=== PATIENT | female | born 1975 | race Caucasian/White ===

== ENCOUNTER 2017-07-28 07:38 | Emergency (ER) | payer BC, OTHER ==
--- NOTE | 2017-07-28 08:10 | EDM.PDOC ---
ED HPI GENERAL MEDICAL PROBLEM - General Chief Complaint: Respiratory Problem Stated Complaint: coughing Time Seen by Provider: 07/28/17 07:38 Source of Information: Reports: Patient History Limitations: Reports: No Limitations - History of Present Illness INITIAL COMMENTS - FREE TEXT/NARRATIVE: 41 y.o.w.f -smoker-came to the ed due tpo a 3 day productive cough. No F/C. She has sinus pressure as well. No other acute medical issues. Onset Date: 07/26/17 Onset Time: 07:00 Duration: Day(s):, Intermittent Location: Reports: Chest Quality: Reports: Other (acute prod cough) Improves with: Reports: Medication, Rest Worsens with: Reports: Movement Context: Reports: Other (smoker, cough) Associated Symptoms: Reports: Other (sinus pressure) - Related Data Allergies Allergy/AdvReac Type Severity Reaction Status Date / Time No Known Allergies Allergy Verified 07/28/17 07:59 Home Meds: Home Meds Ibuprofen 800 mg PO Q6HR PRN 06/27/14 [History] Codeine/Promethazine [Phenergan with Codeine] 5 ml PO ASDIRECTED PRN #1 bottle 07/28/17 [Rx] Sulfamethoxazole/Trimethoprim [Bactrim Ds Tablet] 1 each PO BID #20 tablet 07/28 [Rx] metFORMIN [Glucophage] 1,000 mg PO BIDMEALS 07/28/17 [History] Past Medical History - Past Health History Medical/Surgical History: Denies Medical/Surgical History Social & Family History - Tobacco Use Smoking Status *Q: Current Every Day Smoker Years of Tobacco use: 15 Used Tobacco, but Quit: No Second Hand Smoke Exposure: No - Alcohol Use Days Per Week of Alcohol Use: 0 - Recreational Drug Use Recreational Drug Use: No ED ROS GENERAL - Review of Systems Review Of Systems: See Below Constitutional: Reports: No Symptoms HEENT: Reports: Sinus Problem Respiratory: Reports: Cough Cardiovascular: Reports: No Symptoms Endocrine: Reports: No Symptoms GI/Abdominal: Reports: No Symptoms : Reports: No Symptoms Musculoskeletal: Reports: No Symptoms Skin: Reports: No Symptoms Neurological: Reports: No Symptoms Psychiatric: Reports: No Symptoms Hematologic/Lymphatic: Reports: No Symptoms Immunologic: Reports: No Symptoms ED EXAM, GENERAL - Physical Exam Exam: See Below Exam Limited By: No Limitations General Appearance: Alert, WD/WN, No Apparent Distress Eye Exam: Bilateral Eye: Normal Inspection Ears: Normal External Exam Ear Exam: Bilateral Ear: Auricle Normal Nose: Normal Inspection Throat/Mouth: Normal Inspection Head: Atraumatic, Normocephalic Neck: Normal Inspection, Supple, Non-Tender Respiratory/Chest: No Respiratory Distress, Rhonchi Cardiovascular: Normal Peripheral Pulses, Regular Rate, Rhythm, No Edema, No Gallop, No JVD, No Murmur Peripheral Pulses: 1+: Radial (L), Radial (R) GI/Abdominal: Normal Bowel Sounds, Soft, Non-Tender (Female) Exam: Deferred Rectal (Female) Exam: Deferred Back Exam: Normal Inspection, Full Range of Motion Extremities: Normal Inspection, Normal Range of Motion Neurological: Alert, Oriented, CN II-XII Intact, Normal Cognition, Normal Gait Psychiatric: Normal Affect, Normal Mood Skin Exam: Warm, Dry, Intact, Normal Color, No Rash Lymphatic: No Adenopathy Course - Vital Signs Text/Narrative:: 41 y.o.w.f -smoker-came to the ed due tpo a 3 day productive cough. No F/C. She has sinus pressure as well. No other acute medical issues. PE: Rhonchi, sinus tenderness Impression: Acute bronchitis, sinus tenderness Tx: prescription for Pherergen with codeine and Bactrim DS Plan: D/C with instructions Last Recorded V/S: Last Vital Signs Temp 36.3 C 07/28/17 08:00 Pulse 96 07/28/17 08:00 Resp 18 07/28/17 08:00 BP 150/78 H 07/28/17 08:00 Pulse Ox 98 07/28/17 08:00 Departure - Departure Time of Disposition: 08:21 Disposition: Home, Self-Care 01 Condition: Good Clinical Impression: Acute bronchitis Qualifiers: Bronchitis organism: other organism Qualified Code(s): J20.8 - Acute bronchitis due to other specified organisms Sinusitis Qualifiers: Sinusitis location: pansinusitis Chronicity: acute Recurrence: non-recurrent Qualified Code(s): J01.40 - Acute pansinusitis, unspecified - Discharge Information Prescriptions: Codeine/Promethazine [Phenergan with Codeine] 5 ml PO ASDIRECTED PRN #1 bottle PRN Reason: as needed for severe cough Sulfamethoxazole/Trimethoprim [Bactrim Ds Tablet] 1 each PO BID #20 tablet Referrals: Jose Munoz MD [Primary Care Provider] - Forms: ED Department Discharge Additional Instructions: Please stop tobacco use, please the abx and cough meds as recommended, please follow up, please come back if your symptoms get worse acutely
[2017-07-28 10:27] VITALS: BP 145/86
== END 2017-07-28 08:45 | disposition home or self-care (01) ==
LOC: FB.ED 07:38
DX: J01.40 Acute pansinusitis, unspecified (principal); J20.8 Acute bronchitis due to other specified organisms; F17.210 Nicotine dependence, cigarettes, uncomplicated
CPT/HCPCS: 99283

== ENCOUNTER 2019-02-03 22:16 | Emergency (ER) | payer BC, OTHER ==
[2019-02-03] MEDS ORDERED: Penicillin V Potassium 500 MG Tab PO ONE (23:35)
--- NOTE | 2019-02-03 23:40 | EDM.PDOC ---
ED HPI GENERAL MEDICAL PROBLEM - General Stated Complaint: SORE THROAT Time Seen by Provider: 02/03/19 23:25 Source of Information: Reports: Patient History Limitations: Reports: No Limitations - History of Present Illness INITIAL COMMENTS - FREE TEXT/NARRATIVE: 43-year-old female with nasal congestion for about the past 2 days and malaise with a scratchy throat and chills this morning. She awoke this afternoon with a worsened sore throat and subjective fever with chills. She was not having any trouble breathing. She rated the pain in her throat as a 7/10, it was a sharp and sore pain and it was hard to swallow. The pain was worse with swallowing and with palpation. She has been able to take liquids and with time the symptoms have improved somewhat but she still feels bad all over with the sore throat as well. No nausea or vomiting. There are no other associated signs or symptoms. There are no other modifying factors. 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) - Related Data Allergies Allergy/AdvReac Type Severity Reaction Status Date / Time No Known Allergies Allergy Verified 02/03/19 22:29 Home Meds: Home Meds Ibuprofen 800 mg PO Q6HR PRN 06/27/14 [History] Codeine/Promethazine [Phenergan with Codeine] 5 ml PO ASDIRECTED PRN #1 bottle 07/28/17 [Rx] Sulfamethoxazole/Trimethoprim [Bactrim Ds Tablet] 1 each PO BID #20 tablet 07/28 [Rx] metFORMIN [Glucophage] 1,000 mg PO BIDMEALS 07/28/17 [History] Penicillin V Potassium 1,000 mg PO BID 10 Days #40 tab 02/03/19 [Rx] Past Medical History Endocrine/Metabolic History: Reports: Diabetes, Type II (On metformin) - Past Surgical History Female Surgical History: Reports: Section (2) Social & Family History - Tobacco Use Smoking Status *Q: Current Every Day Smoker - Caffeine Use Caffeine Use: Reports: Coffee, Soda - Alcohol Use Alcohol Use History: No - Living Situation & Occupation Occupation: Employed (Works at [employer]) Social History Comment: She is here with her daughter. ED ROS ENT - Review of Systems Review Of Systems: See Below Constitutional: Reports: Fever, Chills HEENT: Reports: Throat Pain, Other (Nasal congestion) Respiratory: Reports: No Symptoms Cardiovascular: Reports: No Symptoms GI/Abdominal: Reports: No Symptoms : Reports: No Symptoms Musculoskeletal: Reports: No Symptoms Skin: Reports: No Symptoms Neurological: Reports: Headache Hematologic/Lymphatic: Reports: No Symptoms Immunologic: Reports: No Symptoms ED EXAM, ENT - Physical Exam Exam: See Below Exam Limited By: No Limitations General Appearance: Alert, WD/WN, Mild Distress Eye Exam: Bilateral Eye: EOMI, Normal Inspection, PERRL Ears: Normal External Exam, Normal Canal, Hearing Grossly Normal, Normal TMs Nose: Clear Rhinorrhea, Nasal Discharge Mouth/Throat: Normal Gums, Throat Swelling, Tonsillar Erythema, Tonsillar Exudates, Tonsillar Swelling, Other (No evidence of peritonsillar abscess) Head: Atraumatic, Normocephalic Neck: Supple, Full Range of Motion, Lymphadenopathy (R), Lymphadenopathy (L) Respiratory/Chest: No Respiratory Distress, Lungs Clear, Normal Breath Sounds, No Accessory Muscle Use, Chest Non-Tender Cardiovascular: Normal Peripheral Pulses, Regular Rate, Rhythm, No Edema, No JVD GI/Abdominal: Normal Bowel Sounds, Soft, Non-Tender, No Organomegaly, No Mass Back: Normal Inspection Extremities: Normal Inspection, Normal Range of Motion, Non-Tender, No Pedal Edema, Normal Capillary Refill Neurological: Alert, Oriented, CN II-XII Intact, Normal Cognition, No Motor/ Sensory Deficits Psychiatric: Normal Affect Skin: Warm, Dry, Intact, Normal Color, No Rash Lymphatic: No Adenopathy Course - Orders/Labs/Meds Meds: Medications Discontinued Medications Generic Name Dose Route Start Last Admin Trade Name Treyq PRN Reason Stop Dose Admin Hydrocodone Bitart/Acetaminophen Confirm 02/04/19 00:25 [place] 325-10 Mg Administered 02/04/19 00:26 Dose 1 tab .ROUTE .STK-MED ONE Dexamethasone 8 mg 02/03/19 23:33 02/04/19 00:21 Dexamethasone PO 02/03/19 23:34 8 mg ONETIME ONE Administration Penicillin V Potassium 1,000 mg 02/03/19 23:35 Veetids PO 02/03/19 23:36 ONETIME ONE Penicillin V Potassium Confirm 02/04/19 00:11 Veetids Administered 02/04/19 00:12 Dose 1,000 mg .ROUTE .STK-MED ONE Penicillin V Potassium 1,000 mg 02/04/19 00:15 02/04/19 00:20 Veetids PO 02/04/19 00:16 1,000 mg ONETIME ONE Administration Penicillin V Potassium Confirm 02/04/19 00:27 Veetids Administered 02/04/19 00:28 Dose 250 mg .ROUTE .STK-MED ONE Departure - Departure Time of Disposition: 23:45 Disposition: Home, Self-Care 01 Condition: Good Clinical Impression: Pharyngitis Qualifiers: Pharyngitis/tonsillitis etiology: unspecified etiology Qualified Code(s): J02.9 - Acute pharyngitis, unspecified - Discharge Information Prescriptions: Penicillin V Potassium 1,000 mg PO BID 10 Days #40 tab Referrals: Jose Munoz MD [Primary Care Provider] - Additional Instructions: You have a pharyngitis. This could be strep throat or some other bacterial infection. We discussed evaluation and treatment options and you would prefer to this be placed on antibiotics at this time. You were given Decadron, an anti- inflammatory medication, in the emergency department to help decrease your pain and swelling. You should rest. You should drink plenty of fluids. Take Tylenol and ibuprofen as needed for fever or pain. Medication as prescribed (Pen-VK 500 mg). Take probiotics or eat yogurt daily while you are on the antibiotics. Back to the emergency department for inability to swallow liquids, trouble breathing , unrelenting vomiting or any other concerning sign or symptom.
[2019-02-04] MEDS ORDERED: Penicillin V Potassium 250 MG Tab ONE ×2 (00:11→00:27)
[2019-02-04] MEDS: Dexamethasone 4 MG/ML SDV PO ONE ×3 (00:12→01:01)
[2019-02-04] MEDS ORDERED: Penicillin V Potassium 250 MG Tab PO ONE (00:15)
[2019-02-04] MEDS ORDERED: Acetaminophen/HYDROcodone 325-10 MG Tab ONE (00:25)
[2019-02-04 01:05] VITALS: BP 133/86
== END 2019-02-04 00:40 | disposition home or self-care (01) ==
LOC: FB.ED 22:16
DX: J02.9 Acute pharyngitis, unspecified (principal); F17.210 Nicotine dependence, cigarettes, uncomplicated; Z79.899 Other long term (current) drug therapy; Z79.84 Long term (current) use of oral hypoglycemic drugs
CPT/HCPCS: 99282; A9270; J1100

== ENCOUNTER 2019-02-08 15:33 | Emergency (ER) | payer BC ==
[2019-02-08] MEDS ORDERED: Ondansetron 4 MG Tab.DIS PO ONE (15:34)
[2019-02-08] MEDS ORDERED: Sodium Chloride 0.9% 10 ML Syringe FLUSH PRN (16:09)
[2019-02-08] MEDS ORDERED: Sodium Chloride 0.9% 1,000 ML IV ONE (16:10)
[2019-02-08] MEDS ORDERED: Ondansetron 4 MG/2 ML SDV IVPUSH ONE (16:10)
--- NOTE | 2019-02-08 16:16 | EDM.PDOC ---
ED HPI GENERAL MEDICAL PROBLEM - General Chief Complaint: Gastrointestinal Problem Stated Complaint: PATIENT VOMITING, POSSIBLE DEHYDRATION Time Seen by Provider: 02/08/19 15:50 Source of Information: Reports: Patient History Limitations: Reports: No Limitations - History of Present Illness INITIAL COMMENTS - FREE TEXT/NARRATIVE: 43-year-old female with onset of vomiting at 3 AM followed by diarrhea. She reports she has had 15 episodes of vomiting since 3 AM. It has been nonbilious. It seems to be whenever she tries to drink. She is also had 15+ episodes of diarrhea since 3 AM with no blood in her stool. Her stools and then loose and watery. She has had no fevers or chills. She has developed some soreness in her upper abdomen that she rates as about an 8/10 now. It is worse with vomiting and with palpation. It does not radiate. She was seen on 02/03/2019 by myself for pharyngitis and was treated with Pen-Vee K at that time. She reports that her sore throat had basically improved/resolved prior to this vomiting and diarrhea beginning. She feels somewhat weak with standing and moving. She has had urine output but it has been decreased. There are no other associated signs or symptoms. There are no other modifying factors. Onset: Today (3 AM) Duration: Constant Location: Reports: Abdomen (Mild soreness in her upper abdomen) Quality: Reports: Other (Soreness) Severity: Moderate Improves with: Reports: Rest Worsens with: Reports: Other (Palpation) Context: Reports: Other (As above) Associated Symptoms: Reports: Nausea/Vomiting, Weakness Treatments [employer]: Reports: Other (see below) (Nothing) Abdominal Pain Score (Numeric/FACES): 8 - Related Data Allergies Allergy/AdvReac Type Severity Reaction Status Date / Time No Known Allergies Allergy Verified 02/08/19 15:43 Home Meds: Home Meds Ibuprofen 800 mg PO Q6HR PRN 06/27/14 [History] metFORMIN [Glucophage] 1,000 mg PO BIDMEALS 07/28/17 [History] Penicillin V Potassium 1,000 mg PO BID 10 Days #40 tab 02/03/19 [Rx] Past Medical History Endocrine/Metabolic History: Reports: Diabetes, Type II, Obesity/BMI 30+ - Past Surgical History Female Surgical History: Reports: Section Social & Family History - Tobacco Use Smoking Status *Q: Current Every Day Smoker Years of Tobacco use: 19 Packs/Tins Daily: 0.5 - Caffeine Use Caffeine Use: Reports: Coffee, Energy Drinks, Soda - Alcohol Use Alcohol Use History: No - Recreational Drug Use Recreational Drug Use: No - Living Situation & Occupation Living situation: Reports: Occupation: Employed (Works at [employer]) Social History Comment: She is here with her daughter and her . ED ROS GENERAL - Review of Systems Review Of Systems: See Below Constitutional: Reports: Weakness HEENT: Reports: Other (Dry mouth) Respiratory: Reports: No Symptoms Cardiovascular: Reports: No Symptoms GI/Abdominal: Reports: Abdominal Pain, Diarrhea, Nausea, Vomiting : Reports: No Symptoms (But has had decreased urine output today) Musculoskeletal: Reports: No Symptoms Skin: Reports: No Symptoms Neurological: Reports: No Symptoms Hematologic/Lymphatic: Reports: No Symptoms Immunologic: Reports: No Symptoms ED EXAM, GI/ABD - Physical Exam Exam: See Below Exam Limited By: No Limitations General Appearance: Alert, WD/WN, Mild Distress Eyes: Bilateral: Normal Appearance, EOMI Ears: Normal External Exam, Hearing Grossly Normal Nose: Normal Inspection, Normal Mucosa, No Blood Throat/Mouth: Normal Voice, No Airway Compromise, Other (Somewhat dry and tacky because membranes) Head: Atraumatic, Normocephalic Neck: Normal Inspection, Supple, Non-Tender, Full Range of Motion Respiratory/Chest: No Respiratory Distress, Lungs Clear, Normal Breath Sounds, No Accessory Muscle Use, Chest Non-Tender Cardiovascular: Normal Peripheral Pulses, No Edema, Tachycardia (Mildly tachycardic) GI/Abdominal Exam: Normal Bowel Sounds, Soft, No Mass, Tender (Mild upper abdominal tenderness.) Back Exam: Normal Inspection Extremities: Normal Inspection, Normal Range of Motion, Non-Tender, No Pedal Edema, Normal Capillary Refill Neurological: Alert, Oriented, CN II-XII Intact, Normal Cognition, No Motor/ Sensory Deficits Skin Exam: Warm, Dry, Intact, Normal Color, No Rash, Other (Decreased skin turgor) Course - Vital Signs Last Recorded V/S: Last Vital Signs Temp 36.8 C 02/08/19 15:35 Pulse 113 H 02/08/19 16:46 Resp 20 02/08/19 15:35 BP 158/72 H 02/08/19 16:46 Pulse Ox 98 02/08/19 15:35 - Orders/Labs/Meds Orders: Active Orders 24 hr Category Date Time Status Loperamide [Imodium] Med 02/08/19 17:31 Once 4 mg PO ONETIME ONE Sodium Chloride 0.9% [Saline Flush] Med 02/08/19 16:09 Active 10 ml FLUSH ASDIRECTED PRN Peripheral IV Insertion Adult [OM.PC] Routine Oth 02/08/19 16:09 Ordered Medication Orders Loperamide HCl (Imodium) 4 mg PO ONETIME ONE Stop: 02/08/19 17:32 Sodium Chloride (Saline Flush) 10 ml FLUSH ASDIRECTED PRN PRN Reason: Keep Vein Open Last Admin: 02/08/19 16:15 Dose: 10 ml Labs: Laboratory Tests 02/08/19 02/08/19 Range/Units 16:20 16:20 WBC 16.5 H (4.5-12.0) X10-3/uL RBC 5.33 H (3.23-5.20) x10(6)uL Hgb 16.5 H (11.5-15.5) g/dL Hct 48.3 (30.0-51.3) % MCV 90.6 (80-96) fL MCH 31.0 (27.7-33.6) pg MCHC 34.2 (32.2-35.4) g/dL RDW 12.7 (11.5-15.5) % Plt Count 241 (125-369) X10(3)uL MPV 9.4 (7.4-10.4) fL Neut % (Auto) 88.5 H (46-82) % Lymph % (Auto) 3.5 L (13-37) % [place] % (Auto) 4.6 (4-12) % Eos % (Auto) 0 L (1.0-5.0) % Baso % (Auto) 3 H (0-2) % Neut # (Auto) 14.6 H (1.6-8.3) # Lymph # (Auto) 0.6 (0.6-5.0) # [place] # (Auto) 0.8 (0.0-1.3) # Eos # (Auto) 0.0 (0.0-0.8) # Baso # (Auto) 0.5 H (0.0-0.2) # Sodium 135 (135-145) mmol/L Potassium 4.2 (3.5-5.3) mmol/L Chloride 98 L (100-110) mmol/L Carbon Dioxide 25 (21-32) mmol/L BUN 11 (7-18) mg/dL Creatinine 0.7 (0.55-1.02) mg/dL Est Cr Clr Drug Dosing 76.58 mL/min Estimated GFR (MDRD) > 60 (>60) BUN/Creatinine Ratio 15.7 (9-20) Glucose 230 H (80-116) mg/dL Calcium 8.6 (8.6-10.2) mg/dL Total Bilirubin 0.7 (0.1-1.3) mg/dL AST 24 (5-25) IU/L ALT 69 H (12-36) U/L Alkaline Phosphatase 80 (56-112) IU/L Total Protein 7.4 (6.0-8.0) g/dL Albumin 3.6 (3.5-5.2) g/dL Globulin 3.8 g/dL Albumin/Globulin Ratio 1.0 Amylase 21 L (25-115) U/L Meds: Medications Generic Name Dose Route Start Last Admin Trade Name Freq PRN Reason Stop Dose Admin Loperamide HCl 4 mg 02/08/19 17:31 Imodium PO 02/08/19 17:32 ONETIME ONE Sodium Chloride 10 ml 02/08/19 16:09 02/08/19 16:15 Saline Flush FLUSH 10 ml ASDIRECTED PRN Administration Keep Vein Open Discontinued Medications Generic Name Dose Route Start Last Admin Trade Name Freq PRN Reason Stop Dose Admin Sodium Chloride 1,000 mls @ 999 mls/hr 02/08/19 16:10 02/08/19 16:20 Normal Saline IV 02/08/19 17:10 999 mls/hr .BOLUS ONE Administration Ondansetron HCl 4 mg 02/08/19 16:10 02/08/19 16:21 Zofran IVPUSH 02/08/19 16:11 4 mg ONETIME ONE Administration - Re-Assessments/Exams Free Text/Narrative Re-Assessment/Exam: 02/08/19 16:50: Patient feels improved. Her nausea is gone. Her abdomen is soft and completely nontender at this point. Her vital signs have been stable. The plan will be to finish the IV fluid bolus and then give her a fluid challenge. If she tolerates this, she will be discharged. 02/08/19 17:33: Patient has tolerated fluids well with no further nausea and no vomiting. Her abdomen remained soft and nontender. She has not had any diarrhea stools since she has been here but I will give her of Imodium now and have her get Imodium ([id number]) that she can take or any diarrhea. He will also be given a home pack of Zofran. Departure - Departure Time of Disposition: 17:35 Disposition: Home, Self-Care 01 Condition: Good Clinical Impression: Vomiting and diarrhea, Dehydration - Discharge Information Instructions: Nausea and Vomiting, Adult, [id number], Diarrhea, Adult, Easy- to-Read, Rehydration, Adult, Diarrhea, Adult Referrals: Jose Munoz MD [Primary Care Provider] - Forms: ED Department Discharge Additional Instructions: Your blood tests did not point towards any significant problem. You responded well to the IV fluids and nausea medications with no further vomiting and no further abdominal discomfort. Rest. You may take Tylenol and ibuprofen as needed for pain. Obtain Imodium ([id number]) and you may take 1 tablet after each loose stool up to 6 doses in a 24-hour period. Medication as given for urine nausea (Zofran 4 mg ODT). You should stop the penicillin. In 12-18 hours, you should begin to take probiotics or yogurt daily. Back to the emergency department for unrelenting vomiting, worsening abdominal pain, high fever or any other concerning sign or symptom. - My Orders Last 24 Hours: My Active Orders 02/08/19 16:09 Sodium Chloride 0.9% [Saline Flush] 10 ml FLUSH ASDIRECTED PRN Peripheral IV Insertion Adult [OM.PC] Routine 02/08/19 17:31 Loperamide [Imodium] 4 mg PO ONETIME ONE - Assessment/Plan Last 24 Hours: My Active Orders 02/08/19 16:09 Sodium Chloride 0.9% [Saline Flush] 10 ml FLUSH ASDIRECTED PRN Peripheral IV Insertion Adult [OM.PC] Routine 02/08/19 17:31 Loperamide [Imodium] 4 mg PO ONETIME ONE
[2019-02-08] MEDS ORDERED: Loperamide 2 MG Cap PO ONE (17:31)
[2019-02-08 17:37] VITALS: BP 148/66
== END 2019-02-08 17:45 | disposition home or self-care (01) ==
LOC: FB.ED 15:33
DX: E86.0 Dehydration (principal); R19.7 Diarrhea, unspecified; R11.2 Nausea with vomiting, unspecified; F17.210 Nicotine dependence, cigarettes, uncomplicated; Z79.899 Other long term (current) drug therapy
CPT/HCPCS: 36415; 80053; 82150; 85025; 96361; 96374; 99284; A9270; J2405; J7030

== ENCOUNTER 2019-03-21 15:52 | Emergency (ER) | payer BC ==
[2019-03-21] MEDS ORDERED: Famotidine 20 MG Tab PO ONE (16:54)
[2019-03-21] MEDS ORDERED: diphenhydrAMINE 50 MG Cap PO ONE (16:54)
--- NOTE | 2019-03-21 17:02 | EDM.PDOC ---
ED HPI GENERAL MEDICAL PROBLEM - General Chief Complaint: Allergic Reaction Stated Complaint: ALLERGIC REACTION Time Seen by Provider: 03/21/19 16:35 Source of Information: Reports: Patient History Limitations: Reports: No Limitations - History of Present Illness INITIAL COMMENTS - FREE TEXT/NARRATIVE: 43-year-old female who reports that she awoke at 11 AM today with swelling over the right side of her face, forehead and scalp with tenderness with palpation. There is no redness associated with this. It does feel warm to her touch but she has had no fever. No nausea or vomiting. She reports the pain is a 6/10. It is a sharp and sore pain. It is worse with palpation. She reports that she was placed on Diovan 2 days ago for proteinuria associated with her diabetes mellitus. She has no problems swallowing. No problems breathing. She reports that her blood sugars were out of control prior to some medication changes but now they are in the 120-140 range. She did not take her blood sugar today. There are no other associated signs or symptoms. There are no other modifying factors. 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: Other (see below) (Nothing) RIGHT SIDE OF THE FACE Pain Score (Numeric/FACES): 5 - Related Data Allergies Allergy/AdvReac Type Severity Reaction Status Date / Time No Known Allergies Allergy Verified 03/21/19 16:04 Home Meds: Home Meds Ibuprofen 800 mg PO Q6HR PRN 06/27/14 [History] metFORMIN [Glucophage] 1,000 mg PO BIDMEALS 07/28/17 [History] Penicillin V Potassium 1,000 mg PO BID 10 Days #40 tab 02/03/19 [Rx] Past Medical History Cardiovascular History: Reports: High Cholesterol Endocrine/Metabolic History: Reports: Diabetes, Type II, Obesity/BMI 30+ - Past Surgical History Female Surgical History: Reports: Section (2) Social & Family History - Tobacco Use Smoking Status *Q: Current Every Day Smoker Years of Tobacco use: 19 Packs/Tins Daily: 0.2 - Caffeine Use Caffeine Use: Reports: Coffee, Energy Drinks, Soda, Tea - Alcohol Use Alcohol Use History: Yes Alcohol Use Frequency: Socially - Living Situation & Occupation Living situation: Reports: Occupation: Employed (Works at [employer] and at [employer].) ED ROS ALLERGIC REACTION - Review of Systems Review Of Systems: See Below Constitutional: Reports: No Symptoms HEENT: Reports: Other (Right facial and scalp swelling) Respiratory: Reports: No Symptoms Cardiovascular: Reports: No Symptoms Endocrine: Reports: No Symptoms GI/Abdominal: Reports: No Symptoms : Reports: No Symptoms Musculoskeletal: Reports: No Symptoms Skin: Reports: Other (Swelling over right face, forehead and scalp) Neurological: Reports: No Symptoms Hematologic/Lymphatic: Reports: No Symptoms Immunologic: Reports: Other (As above) ED EXAM GENERAL NO PERIP PULSE - Physical Exam Exam: See Below Exam Limited By: No Limitations General Appearance: Alert, WD/WN, Mild Distress Eye Exam: Bilateral Eye: EOMI, Normal Inspection, PERRL Ears: Normal External Exam Nose: Normal Inspection, Normal Mucosa, No Blood Throat/Mouth: Normal Inspection, Normal Oropharynx, Normal Voice, No Airway Compromise Head: Atraumatic, Facial Swelling (On right, mild), Facial Tenderness ( Tenderness to palpation over the right face, forehead and right scalp. No redness or increased warmth to my exam area) Neck: Normal Inspection, Supple, Non-Tender, Full Range of Motion, Other (No stridor) Respiratory/Chest: No Respiratory Distress, Lungs Clear, Normal Breath Sounds, No Accessory Muscle Use, Chest Non-Tender Cardiovascular: Normal Peripheral Pulses, Regular Rate, Rhythm, No JVD GI/Abdominal: Normal Bowel Sounds, Soft, Non-Tender, No Mass Back Exam: Normal Inspection Extremities: Normal Inspection, Normal Range of Motion, Non-Tender, No Pedal Edema, Normal Capillary Refill Neurological: Alert, Oriented, CN II-XII Intact, Normal Cognition, Normal Gait, No Motor/Sensory Deficits Skin Exam: Warm, Dry, Intact, Normal Color, No Rash Lymphatic: No Adenopathy Course - Vital Signs Last Recorded V/S: Last Vital Signs Temp 36.8 C 03/21/19 15:55 Pulse 87 03/21/19 15:55 Resp 19 03/21/19 15:55 BP 127/82 03/21/19 15:55 Pulse Ox 99 03/21/19 15:55 - Orders/Labs/Meds Meds: Medications Discontinued Medications Generic Name Dose Route Start Last Admin Trade Name Marjorie PRN Reason Stop Dose Admin Diphenhydramine HCl 50 mg 03/21/19 16:54 03/21/19 17:06 Benadryl PO 03/21/19 16:55 50 mg ONETIME ONE Administration Famotidine 20 mg 03/21/19 16:54 03/21/19 17:06 Pepcid PO 03/21/19 16:55 20 mg ONETIME ONE Administration - Re-Assessments/Exams Free Text/Narrative Re-Assessment/Exam: 03/21/19 16:50: Patient has slight swelling and some pain with palpation over her right face, forehead and right scalp. This did be angioedema related to the Diovan. I do not see any evidence of an acute infection/cellulitis at this time but I did discuss this as a potential possibility (unlikely at this time). She is to stop the Diovan. She is to take Benadryl 50 mg 4 times a day for the next few days and then as needed. She is also to take ranitidine 150 mg twice daily. She can get both of these [id number]. Departure - Departure Time of Disposition: 17:05 Disposition: Home, Self-Care 01 Condition: Good Clinical Impression: Angioedema Qualifiers: Encounter type: initial encounter Qualified Code(s): T78.3XXA - Angioneurotic edema, initial encounter Adverse reaction to angiotensin 2 receptor antagonist Qualifiers: Encounter type: initial encounter Qualified Code(s): T46.5X5A - Adverse effect of other antihypertensive drugs, initial encounter - Discharge Information Instructions: Angioedema, [id number] Referrals: Jose Munoz MD [Primary Care Provider] - Forms: ED Department Discharge Additional Instructions: You appear to have angioedema and I think it is related to the new medication that you're taking (Diovan). Do not take the Diovan again. Take Benadryl 50 mg by mouth 4 times a day for the next 2 days and then as needed. Also take ranitidine or Zantac 150 mg twice daily for the next 2 days and then as needed. Drink plenty of fluids. Follow-up with your primary doctor this next week. Back to the emergency department for fever, breathing, unrelenting vomiting, any signs of infection or any other concerning sign or symptom.
[2019-03-21 17:23] VITALS: BP 132/88
== END 2019-03-21 17:15 | disposition home or self-care (01) ==
LOC: FB.ED 15:52
DX: T78.3XXA Angioneurotic edema, initial encounter (principal); T46.5X5A Adverse effect of other antihypertensive drugs, initial encounter; F17.210 Nicotine dependence, cigarettes, uncomplicated; Z79.84 Long term (current) use of oral hypoglycemic drugs
CPT/HCPCS: 99283; A9270

== ENCOUNTER 2019-11-23 21:43 | Emergency (ER) | payer BC ==
--- NOTE | 2019-11-23 21:54 | EDM.PDOC ---
ED HPI GENERAL MEDICAL PROBLEM - General Stated Complaint: RASH, DIABETIC Time Seen by Provider: 11/23/19 21:50 Source of Information: Reports: Patient, EMS History Limitations: Reports: No Limitations - History of Present Illness INITIAL COMMENTS - FREE TEXT/NARRATIVE: c/o rash under right breast noticed today is diabetic worried she might have shingles no burn or pain, slight ache, no d/c - Related Data Allergies Allergy/AdvReac Type Severity Reaction Status Date / Time valsartan [From Diovan] Allergy Severe Other Verified 11/23/19 21:54 Home Meds: Home Meds Ibuprofen 800 mg PO Q6HR PRN 06/27/14 [History] metFORMIN [Glucophage] 1,000 mg PO BIDMEALS 07/28/17 [History] Penicillin V Potassium 1,000 mg PO BID 10 Days #40 tab 02/03/19 [Rx] Hydrocortisone [Hydrocortisone 2.5% Crm] 45 gm .XX BID #1 tube 11/23/19 [Rx] Past Medical History - Past Health History Medical/Surgical History: Denies Medical/Surgical History Cardiovascular History: Reports: High Cholesterol Endocrine/Metabolic History: Reports: Diabetes, Type II, Obesity/BMI 30+ - Past Surgical History Female Surgical History: Reports: Section (2) Social & Family History - Family History Family Medical History: Noncontributory - Caffeine Use Caffeine Use: Reports: Coffee, Energy Drinks, Soda, Tea - Living Situation & Occupation Living situation: Reports: Occupation: Employed (Works at [employer] and at [employer].) ED ROS GENERAL - Review of Systems Review Of Systems: See Below Constitutional: Reports: No Symptoms HEENT: Reports: No Symptoms Respiratory: Reports: No Symptoms Cardiovascular: Reports: No Symptoms Endocrine: Reports: No Symptoms GI/Abdominal: Reports: No Symptoms : Reports: No Symptoms Musculoskeletal: Reports: No Symptoms Skin: Reports: Rash, Erythema Neurological: Reports: No Symptoms Psychiatric: Reports: No Symptoms Hematologic/Lymphatic: Reports: No Symptoms Immunologic: Reports: No Symptoms ED EXAM, GENERAL - Physical Exam Exam: See Below Exam Limited By: No Limitations General Appearance: Alert, WD/WN, No Apparent Distress Respiratory/Chest: No Respiratory Distress Cardiovascular: Regular Rate, Rhythm Neurological: Alert, Oriented Psychiatric: Normal Affect Skin Exam: Other (R breast examined with advanced nursing professor and daughter in room, wearing gloves, there is a typical red circumscribed slightly elevated erythematous 5 cm rash in the intertriginous area of the R breast medially with central clearing) Lymphatic: No Adenopathy Departure - Departure Time of Disposition: 22:14 Disposition: Home, Self-Care 01 Condition: Good Clinical Impression: Intertrigo - Discharge Information *PRESCRIPTION DRUG MONITORING PROGRAM REVIEWED*: Not Applicable *COPY OF PRESCRIPTION DRUG MONITORING REPORT IN PATIENT ALFRED: Not Applicable Prescriptions: Hydrocortisone [Hydrocortisone 2.5% Crm] 45 gm .XX BID #1 tube Instructions: Intertrigo Additional Instructions: Avoid soap and washing. Use thin layer of hydrocortisone 2.5% cream 2 times a day for 1 week, then daily for 1 week, then every other day for 1 week. See your doctor if you are not least 80% in one week and cleared up completely in 3 weeks.
[2019-11-25 02:42] VITALS: BP 143/79; PULSE 96
== END 2019-11-23 22:25 | disposition home or self-care (01) ==
LOC: FB.ED 21:43
DX: L30.4 Erythema intertrigo (principal); E11.9 Type 2 diabetes mellitus without complications; E66.9 Obesity, unspecified; Z79.899 Other long term (current) drug therapy; Z79.84 Long term (current) use of oral hypoglycemic drugs; Z88.8 Allergy status to other drugs, medicaments and biological substances; Z68.39 Body mass index [BMI] 39.0-39.9, adult
CPT/HCPCS: 99282

== ENCOUNTER 2021-02-06 04:28 | Emergency (ER) | payer BC ==
[2021-02-06] MEDS ORDERED: Ketorolac 30 MG/ML SDV IVPUSH ONE (04:56)
[2021-02-06] MEDS ORDERED: Sodium Chloride 0.9% 1,000 ML IV ONE (04:56)
[2021-02-06] MEDS ORDERED: Glucagon,Human Recombinant 1 MG Vial IM PRN (05:22)
[2021-02-06] MEDS ORDERED: 50% Dextrose in Water 50 ML Syringe IVPUSH PRN (05:22)
[2021-02-06] MEDS ORDERED: Insulin Lispro 100 Unit/ML 3 ML KwikPen SUBCUT ONE ×2 (05:23→05:26)
[2021-02-06 06:30] VITALS: BP 161/80; PULSE 117
--- NOTE | 2021-02-06 06:45 | EDM.PDOC ---
ED HPI GENERAL MEDICAL PROBLEM - General Chief Complaint: Flank Pain Stated Complaint: BACK HURTS Time Seen by Provider: 02/06/21 04:35 Source of Information: Reports: Patient History Limitations: Reports: No Limitations - History of Present Illness INITIAL COMMENTS - FREE TEXT/NARRATIVE: Patient presented to the ED because of left flank pain at 2 am yesterday. The pain is sharp, 6/10,with associated nausea but no vomiting. There is no fever, chills but has dysuria 2 days ago. LEFT SIDE FLANK PAIN Pain Score (Numeric/FACES): 8 - Related Data Allergies Allergy/AdvReac Type Severity Reaction Status Date / Time valsartan [From Diovan] Allergy Severe Other Verified 11/23/19 21:54 Home Meds: Home Meds metFORMIN [Glucophage] 1,000 mg PO BIDMEALS 07/28/17 [History] Hydrocortisone [Hydrocortisone 2.5% Crm] 45 gm .XX BID #1 tube 11/23/19 [Rx] Aspirin [Halfprin] 81 mg PO DAILY 11/25/19 [History] Dulaglutide [Trulicity] 1.5 mg SUBCUT Q7D 11/25/19 [History] Losartan Potassium 25 mg PO DAILY 11/25/19 [History] Meloxicam 7.5 mg PO DAILY 11/25/19 [History] Pravastatin Sodium 10 mg PO DAILY 11/25/19 [History] Sertraline HCl 100 mg PO DAILY 11/25/19 [History] Hydrocodone/Acetaminophen [Hydrocodon-Acetaminophen 5-325] 1 each PO Q4H PRN #15 tablet 02/06/21 [Rx] Sulfamethoxazole/Trimethoprim [Bactrim Ds Tablet] 1 each PO BID #10 tablet 02/06/21 [Rx] Tamsulosin HCl [Flomax] 0.4 mg PO DAILY #10 cap.er.24h 02/06/21 [Rx] Past Medical History - Past Health History Medical/Surgical History: Denies Medical/Surgical History Cardiovascular History: Reports: High Cholesterol Psychiatric History: Reports: Anxiety Endocrine/Metabolic History: Reports: Diabetes, Type II, Obesity/BMI 30+ - Past Surgical History Female Surgical History: Reports: Section Other Female Surgeries/Procedures: X2. Social & Family History - Family History Family Medical History: No Pertinent Family History - Tobacco Use Tobacco Use Status *Q: Current Every Day Tobacco User Years of Tobacco use: 21 Packs/Tins Daily: 0.5 - Caffeine Use Caffeine Use: Reports: Coffee, Energy Drinks, Soda, Tea - Living Situation & Occupation Living situation: Reports: Occupation: Employed (Works at [employer] and at [employer].) ED ROS GENERAL - Review of Systems Review Of Systems: See Below Constitutional: Reports: No Symptoms HEENT: Reports: No Symptoms Respiratory: Reports: No Symptoms Cardiovascular: Reports: No Symptoms Endocrine: Reports: No Symptoms GI/Abdominal: Reports: Abdominal Pain : Reports: Flank Pain Musculoskeletal: Reports: No Symptoms Skin: Reports: No Symptoms Neurological: Reports: No Symptoms ED EXAM, RENAL/ - Physical Exam Exam: See Below Exam Limited By: No Limitations General Appearance: Alert, No Apparent Distress Eye Exam: Bilateral Eye: PERRL Ears: Normal External Exam, Normal Canal Nose: Normal Inspection, Normal Mucosa, No Blood Throat/Mouth: Normal Inspection, Normal Lips Head: Atraumatic, Normocephalic Neck: Normal Inspection, Supple, Non-Tender, Full Range of Motion Respiratory/Chest: No Respiratory Distress, Lungs Clear, Normal Breath Sounds Cardiovascular: Normal Peripheral Pulses, Regular Rate, Rhythm, No Edema, No Gallop, No JVD, No Murmur, No Rub GI/Abdominal: Normal Bowel Sounds, Soft, Non-Tender, No Organomegaly Extremities: Normal Inspection, Normal Range of Motion, Non-Tender Neurological: Alert, Oriented, CN II-XII Intact, Normal Cognition, Normal Gait, Normal Reflexes, No Motor/Sensory Deficits Psychiatric: Normal Affect Skin Exam: Warm Course - Vital Signs Text/Narrative:: Lab and CT result was reviewed and discussed with patient NS 1 L bolus Toradol 30 mg IV x1 Humalog 14 U SC x1 Last Recorded V/S: Last Vital Signs Temp 37.2 C 02/06/21 06:30 Pulse 117 H 02/06/21 06:30 Resp 18 02/06/21 06:30 BP 161/80 H 02/06/21 06:30 Pulse Ox 96 02/06/21 06:30 - Orders/Labs/Meds Orders: Active Orders 24 hr Category Date Time Status Abdomen Pelvis wo Cont [CT] Stat Exams 02/06/21 04:54 Taken Dextrose 50% in Water Med 02/06/21 05:22 Active 50 ml IVPUSH ASDIRECTED PRN Glucagon,Human Recombinant [GlucaGen] Med 02/06/21 05:22 Active 1 mg IM ASDIRECTED PRN Medication Orders Dextrose/Water (50% Dextrose In Water 50 Ml Syringe) 50 ml IVPUSH ASDIRECTED PRN PRN Reason: Hypoglycemia Glucagon (Glucagon,Human Recombinant 1 Mg Vial) 1 mg IM ASDIRECTED PRN PRN Reason: Hypoglycemia Labs: Laboratory Tests 02/06/21 02/06/21 02/06/21 Range/Units 05:00 05:00 05:35 WBC 16.6 H (3.0-10.3) x10-3/uL RBC 4.96 (3.60-5.20) x10(6)uL Hgb 15.4 (11.4-15.5) g/dL Hct 47.2 (34.2-48.2) % MCV 95.0 (76.7-100.5) fL MCH 31.1 (23.9-33.9) pg MCHC 32.7 (31.9-34.8) g/dL RDW 13.2 (12.3-16.5) % Plt Count 260 (151-488) x10(3)uL MPV 10.2 (7.1-12.4) fL Add Manual Diff Yes Neutrophils % (Manual) 93 H (46-82) % Lymphocytes % (Manual) 3 L (13-37) % Monocytes % (Manual) 4 (4-12) % Sodium 132 L (135-145) mmol/L Potassium 4.6 (3.5-5.3) mmol/L Chloride 94 L (100-110) mmol/L Carbon Dioxide 21 (21-32) mmol/L BUN 14 (7-18) mg/dL Creatinine 1.2 H (0.55-1.02) mg/dL Est Cr Clr Drug Dosing 44.15 mL/min Estimated GFR (MDRD) 48 L (>60) BUN/Creatinine Ratio 11.7 (9-20) Glucose 475 H* D (80-116) mg/dL POC Glucose (80-116) mg/dL Calcium 8.2 L (8.6-10.2) mg/dL Urine Color Yellow (YELLOW) Urine Appearance Slightly cloudy (CLEAR) Urine pH 5.0 (5.0-6.5) Ur Specific [place] 1.020 (1.010-1.025) Urine Protein 30 H (NEGATIVE) mg/dL Urine Glucose (UA) >1000 H (NORMAL) mg/dL Urine Ketones 150 H (NEGATIVE) mg/dL Urine Occult Blood Large H (NEGATIVE) Urine Nitrite Negative (NEGATIVE) Urine Bilirubin Negative (NEGATIVE) Urine Urobilinogen Normal (NEGATIVE) mg/dL Ur Leukocyte Esterase Negative (NEGATIVE) Urine RBC >100 H (0-5) Urine WBC 0-5 (0-5) Ur Squamous Epith Cells Few H (NS,R,O) Urine Bacteria Few H (NS) 02/06/21 Range/Units 06:22 WBC (3.0-10.3) x10-3/uL RBC (3.60-5.20) x10(6)uL Hgb (11.4-15.5) g/dL Hct (34.2-48.2) % MCV (76.7-100.5) fL MCH (23.9-33.9) pg MCHC (31.9-34.8) g/dL RDW (12.3-16.5) % Plt Count (151-488) x10(3)uL MPV (7.1-12.4) fL Add Manual Diff Neutrophils % (Manual) (46-82) % Lymphocytes % (Manual) (13-37) % Monocytes % (Manual) (4-12) % Sodium (135-145) mmol/L Potassium (3.5-5.3) mmol/L Chloride (100-110) mmol/L Carbon Dioxide (21-32) mmol/L BUN (7-18) mg/dL Creatinine (0.55-1.02) mg/dL Est Cr Clr Drug Dosing mL/min Estimated GFR (MDRD) (>60) BUN/Creatinine Ratio (9-20) Glucose (80-116) mg/dL POC Glucose 405 H* (80-116) mg/dL Calcium (8.6-10.2) mg/dL Urine Color (YELLOW) Urine Appearance (CLEAR) Urine pH (5.0-6.5) Ur Specific [place] (1.010-1.025) Urine Protein (NEGATIVE) mg/dL Urine Glucose (UA) (NORMAL) mg/dL Urine Ketones (NEGATIVE) mg/dL Urine Occult Blood (NEGATIVE) Urine Nitrite (NEGATIVE) Urine Bilirubin (NEGATIVE) Urine Urobilinogen (NEGATIVE) mg/dL Ur Leukocyte Esterase (NEGATIVE) Urine RBC (0-5) Urine WBC (0-5) Ur Squamous Epith Cells (NS,R,O) Urine Bacteria (NS) Meds: Medications Generic Name Dose Route Start Last Admin Trade Name Marjorie PRN Reason Stop Dose Admin Dextrose/Water 50 ml 02/06/21 05:22 50% Dextrose In Water 50 Ml Syringe IVPUSH ASDIRECTED PRN Hypoglycemia Glucagon 1 mg 02/06/21 05:22 Glucagon,Human Recombinant 1 Mg Vial IM ASDIRECTED PRN Hypoglycemia Discontinued Medications Generic Name Dose Route Start Last Admin Trade Name Marjorie PRN Reason Stop Dose Admin Sodium Chloride 1,000 mls @ 999 mls/hr 02/06/21 04:56 02/06/21 04:58 Normal Saline IV 02/06/21 05:56 999 mls/hr .BOLUS ONE Administration Insulin Human Lispro 15 unit 02/06/21 05:23 02/06/21 05:28 Insulin Lispro 100 Unit/Ml 3 Ml Kwikpen SUBCUT 02/06/21 05:24 15 unit ONETIME ONE Administration Ketorolac Tromethamine 30 mg 02/06/21 04:56 02/06/21 05:01 Ketorolac 30 Mg/Ml Sdv IVPUSH 02/06/21 04:57 30 mg ONETIME ONE Administration Departure - Departure Time of Disposition: 06:40 Disposition: Home, Self-Care 01 Condition: Good Clinical Impression: Nephrolithiasis, Hyperglycemia - Discharge Information Prescriptions: Sulfamethoxazole/Trimethoprim [Bactrim Ds Tablet] 1 each PO BID #10 tablet Tamsulosin HCl [Flomax] 0.4 mg PO DAILY #10 cap.er.24h Hydrocodone/Acetaminophen [Hydrocodon-Acetaminophen 5-325] 1 each PO Q4H PRN #15 tablet PRN Reason: Pain Instructions: Kidney Stones, [id number], Hyperglycemia Referrals: Triston Noble MD [Primary Care Provider] - Forms: ED Department Discharge Additional Instructions: Please read discharge instructions on kidney stones Increase oral fluids Hydrocodone 5/325, 1-2 tablets every 4-6 hours as needed for pain Tamsulosin/Flomax 1 tablet daily until you pass the stone out Bactrim DS twice daily for 5 days Follow up with your doctor in 5 days if pain doesn't go away Sepsis Event Note (ED) - Evaluation Sepsis Screening Result: No Definite Risk - Focused Exam Vital Signs: Vital Signs Temp Pulse Resp BP Pulse Ox 02/06/21 06:30 37.2 C 117 H 18 161/80 H 96 02/06/21 04:28 36.8 C 118 H 18 186/101 H 95 - My Orders Last 24 Hours: My Active Orders 02/06/21 04:54 Abdomen Pelvis wo Cont [CT] Stat 02/06/21 05:22 Dextrose 50% in Water 50 ml IVPUSH ASDIRECTED PRN Glucagon,Human Recombinant [GlucaGen] 1 mg IM ASDIRECTED PRN - Assessment/Plan Last 24 Hours: My Active Orders 02/06/21 04:54 Abdomen Pelvis wo Cont [CT] Stat 02/06/21 05:22 Dextrose 50% in Water 50 ml IVPUSH ASDIRECTED PRN Glucagon,Human Recombinant [GlucaGen] 1 mg IM ASDIRECTED PRN
== END 2021-02-06 07:03 | disposition home or self-care (01) ==
LOC: FB.ED 04:28
DX: N13.2 Hydronephrosis with renal and ureteral calculous obstruction (principal); E11.65 Type 2 diabetes mellitus with hyperglycemia; E78.00 Pure hypercholesterolemia, unspecified; E66.9 Obesity, unspecified; Z72.0 Tobacco use; Z68.41 Body mass index [BMI] 40.0-44.9, adult; Z88.8 Allergy status to other drugs, medicaments and biological substances; Z79.82 Long term (current) use of aspirin; Z79.84 Long term (current) use of oral hypoglycemic drugs; Z79.899 Other long term (current) drug therapy
CPT/HCPCS: 36415; 74176; 80048; 81001; 82947; 85025; 96374; 99284; J1815; J1885; J7030

== ENCOUNTER 2021-02-08 21:46 | Emergency (ER) | payer BC ==
[2021-02-08] MEDS ORDERED: Ketorolac 30 MG/ML SDV IVPUSH ONE (21:56)
[2021-02-08] MEDS ORDERED: Ondansetron 4 MG/2 ML SDV IVPUSH ONE (21:56)
[2021-02-08] MEDS ORDERED: Sodium Chloride 0.9% 10 ML Syringe FLUSH PRN (21:56)
[2021-02-08] MEDS ORDERED: Morphine 2 MG/ML SYRINGE IVPUSH STA (21:57)
[2021-02-08] MEDS ORDERED: Sodium Chloride 0.9% 1,000 ML IV SCH (22:00)
--- NOTE | 2021-02-08 22:21 | EDM.PDOC ---
ED HPI GENERAL MEDICAL PROBLEM - General Chief Complaint: Genitourinary Problem Stated Complaint: KIDNEY STONES/VOMITING Time Seen by Provider: 02/08/21 22:00 Source of Information: Reports: Patient History Limitations: Reports: No Limitations - History of Present Illness INITIAL COMMENTS - FREE TEXT/NARRATIVE: Patient presented to the ED because of left flank pain,9/10,sharp and radiating towards her groin. She was diagnosed with kidney stone 3 days ago. She took her norco and flomax without significant relief. There is no associated fever or chills. Left Flank Pain Score (Numeric/FACES): 9 - Related Data Allergies Allergy/AdvReac Type Severity Reaction Status Date / Time valsartan [From Diovan] Allergy Severe Other Verified 11/23/19 21:54 Home Meds: Home Meds metFORMIN [Glucophage] 1,000 mg PO BIDMEALS 07/28/17 [History] Hydrocortisone [Hydrocortisone 2.5% Crm] 45 gm .XX BID #1 tube 11/23/19 [Rx] Aspirin [Halfprin] 81 mg PO DAILY 11/25/19 [History] Dulaglutide [Trulicity] 1.5 mg SUBCUT Q7D 11/25/19 [History] Losartan Potassium 25 mg PO DAILY 11/25/19 [History] Meloxicam 7.5 mg PO DAILY 11/25/19 [History] Pravastatin Sodium 10 mg PO DAILY 11/25/19 [History] Sertraline HCl 100 mg PO DAILY 11/25/19 [History] Hydrocodone/Acetaminophen [Hydrocodon-Acetaminophen 5-325] 1 each PO Q4H PRN #15 tablet 02/06/21 [Rx] Sulfamethoxazole/Trimethoprim [Bactrim Ds Tablet] 1 each PO BID #10 tablet 02/06/21 [Rx] Tamsulosin HCl [Flomax] 0.4 mg PO DAILY #10 cap.er.24h 02/06/21 [Rx] Ondansetron [Zofran ODT] 4 mg PO Q4H PRN #7 tab.dis 02/08/21 [Rx] Past Medical History - Past Health History Medical/Surgical History: Denies Medical/Surgical History Cardiovascular History: Reports: High Cholesterol Psychiatric History: Reports: Anxiety Endocrine/Metabolic History: Reports: Diabetes, Type II, Obesity/BMI 30+ - Past Surgical History Female Surgical History: Reports: Section Other Female Surgeries/Procedures: X2. Social & Family History - Family History Family Medical History: No Pertinent Family History - Tobacco Use Tobacco Use Status *Q: Current Every Day Tobacco User Years of Tobacco use: 20 Packs/Tins Daily: 0.2 - Caffeine Use Caffeine Use: Reports: Coffee, Soda - Recreational Drug Use Recreational Drug Use: No - Living Situation & Occupation Living situation: Reports: Occupation: Employed (Works at [employer] and at [employer]) ED ROS GENERAL - Review of Systems Review Of Systems: See Below Constitutional: Reports: No Symptoms HEENT: Reports: No Symptoms Respiratory: Reports: No Symptoms Cardiovascular: Reports: No Symptoms Endocrine: Reports: No Symptoms GI/Abdominal: Reports: Nausea, Vomiting : Reports: Flank Pain Musculoskeletal: Reports: No Symptoms Skin: Reports: No Symptoms Neurological: Reports: No Symptoms ED EXAM, RENAL/ - Physical Exam Exam: See Below Exam Limited By: No Limitations General Appearance: Alert, No Apparent Distress Eye Exam: Bilateral Eye: PERRL Ears: Normal External Exam, Normal Canal Nose: Normal Inspection, Normal Mucosa Throat/Mouth: Normal Inspection, Normal Lips, Normal Teeth Head: Atraumatic, Normocephalic Neck: Normal Inspection, Supple, Non-Tender, Full Range of Motion Respiratory/Chest: No Respiratory Distress, Lungs Clear, Normal Breath Sounds Cardiovascular: Normal Peripheral Pulses, Regular Rate, Rhythm, No Edema, No Gallop, No JVD, No Murmur Back Exam: CVA Tenderness (L) Extremities: Normal Inspection, Normal Range of Motion, Non-Tender Neurological: Alert, Oriented, CN II-XII Intact Psychiatric: Normal Affect Course - Vital Signs Text/Narrative:: Lab result was reviewed and discussed with patient NS 1 L IV x1 Zofran 4 mg IV x1 Toradol 30 mg IV x1 Morphine 2 mg IV x1 Percocet 5/325, 2 po x1 Humalog 20 U SC x1 Last Recorded V/S: Last Vital Signs Temp 36.6 C 02/08/21 21:53 Pulse 106 H 02/08/21 21:53 Resp 20 02/08/21 21:53 BP 180/91 H 02/08/21 21:53 Pulse Ox 96 02/08/21 21:53 - Orders/Labs/Meds Orders: Active Orders 24 hr Category Date Time Status UA W/MICROSCOPIC [URIN] Stat Lab 02/08/21 21:56 Ordered Dextrose 50% in Water Med 02/08/21 22:22 Active 50 ml IVPUSH ASDIRECTED PRN Glucagon,Human Recombinant [GlucaGen] Med 02/08/21 22:22 Active 1 mg IM ASDIRECTED PRN Sodium Chloride 0.9% [Normal Saline] 1,000 ml Med 02/08/21 22:00 Active IV ASDIRECTED Sodium Chloride 0.9% [Saline Flush] Med 02/08/21 21:56 Active 10 ml FLUSH ASDIRECTED PRN Saline Lock Insert [OM.PC] Routine Oth 02/08/21 21:56 Ordered Medication Orders Dextrose/Water (50% Dextrose In Water 50 Ml Syringe) 50 ml IVPUSH ASDIRECTED PRN PRN Reason: Hypoglycemia Glucagon (Glucagon,Human Recombinant 1 Mg Vial) 1 mg IM ASDIRECTED PRN PRN Reason: Hypoglycemia Sodium Chloride (Normal Saline) 1,000 mls @ 125 mls/hr IV ASDIRECTED BLAIRE Last Admin: 02/08/21 22:10 Dose: 125 mls/hr Documented by: HIREN Sodium Chloride (Sodium Chloride 0.9% 10 Ml Syringe) 10 ml FLUSH ASDIRECTED PRN PRN Reason: Keep Vein Open Labs: Laboratory Tests 02/08/21 02/08/21 Range/Units 22:05 22:05 WBC 13.6 H (3.0-10.3) x10-3/uL RBC 4.71 (3.60-5.20) x10(6)uL Hgb 14.7 (11.4-15.5) g/dL Hct 44.1 (34.2-48.2) % MCV 93.6 (76.7-100.5) fL MCH 31.3 (23.9-33.9) pg MCHC 33.4 (31.9-34.8) g/dL RDW 13.2 (12.3-16.5) % Plt Count 238 (151-488) x10(3)uL MPV 10.0 (7.1-12.4) fL Neut % (Auto) 73.8 (30.8-76.2) % Lymph % (Auto) 17.3 L (18.4-52.1) % Finney % (Auto) 8.0 (4.4-15.7) % Eos % (Auto) 0.5 L (0.6-8.1) % Baso % (Auto) 0.4 (0.2-1.5) % Neut # (Auto) 10.0 H (1.5-6.3) x10-3/uL Lymph # (Auto) 2.3 (1.0-4.4) x10-3/uL Finney # (Auto) 1.1 H (0.3-1.0) x10-3/uL Eos # (Auto) 0.1 (0.0-0.8) x10-3/uL Baso # (Auto) 0.0 (0.0-0.1) x10-3/uL Sodium 131 L (135-145) mmol/L Potassium 3.8 (3.5-5.3) mmol/L Chloride 96 L (100-110) mmol/L Carbon Dioxide 21 (21-32) mmol/L BUN 9 (7-18) mg/dL Creatinine 1.0 (0.55-1.02) mg/dL Est Cr Clr Drug Dosing TNP Estimated GFR (MDRD) 59 L (>60) BUN/Creatinine Ratio 9.0 (9-20) Glucose 451 H* (80-116) mg/dL Calcium 8.0 L (8.6-10.2) mg/dL Meds: Medications Generic Name Dose Route Start Last Admin Trade Name Freq PRN Reason Stop Dose Admin Dextrose/Water 50 ml 02/08/21 22:22 50% Dextrose In Water 50 Ml Syringe IVPUSH ASDIRECTED PRN Hypoglycemia Glucagon 1 mg 02/08/21 22:22 Glucagon,Human Recombinant 1 Mg Vial IM ASDIRECTED PRN Hypoglycemia Sodium Chloride 1,000 mls @ 125 mls/hr 02/08/21 22:00 02/08/21 22:10 Normal Saline IV 125 mls/hr ASDIRECTED BLAIRE Administration Sodium Chloride 10 ml 02/08/21 21:56 Sodium Chloride 0.9% 10 Ml Syringe FLUSH ASDIRECTED PRN Keep Vein Open Discontinued Medications Generic Name Dose Route Start Last Admin Trade Name Freq PRN Reason Stop Dose Admin Insulin Human Lispro 20 unit 02/08/21 22:22 02/08/21 22:32 Insulin Lispro 100 Unit/Ml 3 Ml Kwikpen SUBCUT 02/08/21 22:23 20 units NOW STA Administration Ketorolac Tromethamine 30 mg 02/08/21 21:56 02/08/21 22:10 Ketorolac 30 Mg/Ml Sdv IVPUSH 02/08/21 21:57 30 mg ONETIME ONE Administration Morphine Sulfate 2 mg 02/08/21 21:57 02/08/21 22:12 Morphine 2 Mg/Ml Syringe IVPUSH 02/08/21 21:58 2 mg NOW STA Administration Ondansetron HCl 4 mg 02/08/21 21:56 02/08/21 22:08 Ondansetron 4 Mg/2 Ml Sdv IVPUSH 02/08/21 21:57 4 mg ONETIME ONE Administration Oxycodone/Acetaminophen 2 tab 02/08/21 22:30 Acetaminophen/Oxycodone 325-5 Mg Tab PO 02/08/21 22:31 NOW STA Departure - Departure Time of Disposition: 23:30 Disposition: Home, Self-Care 01 Condition: Good Clinical Impression: Nephrolithiasis, Hyperglycemia - Discharge Information Prescriptions: Ondansetron [Zofran ODT] 4 mg PO Q4H PRN #7 tab.dis PRN Reason: Nausea Instructions: Kidney Stones, [id number], Hyperglycemia, [id number] Forms: ED Department Discharge Additional Instructions: Please read discharge instructions on kidney stone and high blood sugar Drink at least 2-3 liter of water daily Continue your flomax,norco,Bactrim DS as directed Zofran 4 mg ODT every 4 hours as needed for nausea Follow up with Dr Noble tomorrow, you might need a referral to se the Urologist Sepsis Event Note (ED) - Evaluation Sepsis Screening Result: No Definite Risk - Focused Exam Vital Signs: Vital Signs Temp Pulse Resp BP Pulse Ox 02/08/21 21:53 36.6 C 106 H 20 180/91 H 96 - My Orders Last 24 Hours: My Active Orders 02/08/21 21:56 UA W/MICROSCOPIC [URIN] Stat Sodium Chloride 0.9% [Saline Flush] 10 ml FLUSH ASDIRECTED PRN Saline Lock Insert [OM.PC] Routine 02/08/21 22:00 Sodium Chloride 0.9% [Normal Saline] 1,000 ml IV ASDIRECTED 02/08/21 22:22 Dextrose 50% in Water 50 ml IVPUSH ASDIRECTED PRN Glucagon,Human Recombinant [GlucaGen] 1 mg IM ASDIRECTED PRN - Assessment/Plan Last 24 Hours: My Active Orders 02/08/21 21:56 UA W/MICROSCOPIC [URIN] Stat Sodium Chloride 0.9% [Saline Flush] 10 ml FLUSH ASDIRECTED PRN Saline Lock Insert [OM.PC] Routine 02/08/21 22:00 Sodium Chloride 0.9% [Normal Saline] 1,000 ml IV ASDIRECTED 02/08/21 22:22 Dextrose 50% in Water 50 ml IVPUSH ASDIRECTED PRN Glucagon,Human Recombinant [GlucaGen] 1 mg IM ASDIRECTED PRN
[2021-02-08] MEDS ORDERED: Glucagon,Human Recombinant 1 MG Vial IM PRN (22:22)
[2021-02-08] MEDS ORDERED: Insulin Lispro 100 Unit/ML 3 ML KwikPen SUBCUT STA (22:22)
[2021-02-08] MEDS ORDERED: 50% Dextrose in Water 50 ML Syringe IVPUSH PRN (22:22)
[2021-02-08] MEDS ORDERED: Insulin Lispro 100 Unit/ML 3 ML KwikPen SUBCUT ONE (22:28)
[2021-02-08] MEDS ORDERED: Acetaminophen/oxyCODONE 325-5 MG Tab PO STA (22:30)
[2021-02-09 00:49] VITALS: BP 149/88; PULSE 99
== END 2021-02-08 23:41 | disposition home or self-care (01) ==
LOC: FB.ED 21:46
DX: N20.0 Calculus of kidney (principal); E11.65 Type 2 diabetes mellitus with hyperglycemia; E78.00 Pure hypercholesterolemia, unspecified; E66.9 Obesity, unspecified; Z88.8 Allergy status to other drugs, medicaments and biological substances; Z79.82 Long term (current) use of aspirin; Z79.84 Long term (current) use of oral hypoglycemic drugs; Z79.899 Other long term (current) drug therapy; Z72.0 Tobacco use
CPT/HCPCS: 36415; 80048; 81001; 82947; 85025; 96374; 96375; 99284-25; A9270-GY; J1815; J1885; J2270; J2405; J7030

== ENCOUNTER 2021-03-24 17:31 | Emergency (ER) | payer BC ==
[2021-03-24] MEDS ORDERED: Ketorolac 30 MG/ML SDV IM STA (18:12)
--- NOTE | 2021-03-24 18:17 | EDM.PDOC ---
ED HPI GENERAL MEDICAL PROBLEM - General Stated Complaint: LEFT FOOT PAIN Time Seen by Provider: 03/24/21 17:35 Source of Information: Reports: Patient History Limitations: Reports: No Limitations - History of Present Illness INITIAL COMMENTS - FREE TEXT/NARRATIVE: Patient presented to the ED because of left foot pain. Her left heel is getting swollen, red and tender. She denies having any recent trauma or injury. Left Feet Pain Score (Numeric/FACES): 7 - Related Data Allergies Allergy/AdvReac Type Severity Reaction Status Date / Time valsartan [From Diovan] Allergy Severe Other Verified 11/23/19 21:54 Home Meds: Home Meds metFORMIN [Glucophage] 1,000 mg PO BIDMEALS 07/28/17 [History] Hydrocortisone [Hydrocortisone 2.5% Crm] 45 gm .XX BID #1 tube 11/23/19 [Rx] Aspirin [Halfprin] 81 mg PO DAILY 11/25/19 [History] Dulaglutide [Trulicity] 1.5 mg SUBCUT Q7D 11/25/19 [History] Losartan Potassium 25 mg PO DAILY 11/25/19 [History] Meloxicam 7.5 mg PO DAILY 11/25/19 [History] Pravastatin Sodium 10 mg PO DAILY 11/25/19 [History] Sertraline HCl 100 mg PO DAILY 11/25/19 [History] Hydrocodone/Acetaminophen [Hydrocodon-Acetaminophen 5-325] 1 each PO Q4H PRN #15 tablet 02/06/21 [Rx] Sulfamethoxazole/Trimethoprim [Bactrim Ds Tablet] 1 each PO BID #10 tablet 02/06/21 [Rx] Tamsulosin HCl [Flomax] 0.4 mg PO DAILY #10 cap.er.24h 02/06/21 [Rx] Ondansetron [Zofran ODT] 4 mg PO Q4H PRN #7 tab.dis 02/08/21 [Rx] Naproxen 500 mg PO BID #15 tablet 03/24/21 [Rx] Naproxen 500 mg PO TID #30 tablet 03/24/21 [Rx] cephALEXin [Keflex] 500 mg PO Q8H #30 cap 03/24/21 [Rx] Past Medical History - Past Health History Medical/Surgical History: Denies Medical/Surgical History Cardiovascular History: Reports: High Cholesterol Psychiatric History: Reports: Anxiety Endocrine/Metabolic History: Reports: Diabetes, Type II, Obesity/BMI 30+ - Past Surgical History Female Surgical History: Reports: Section Other Female Surgeries/Procedures: X2. Social & Family History - Family History Family Medical History: No Pertinent Family History - Caffeine Use Caffeine Use: Reports: Coffee, Soda - Living Situation & Occupation Living situation: Reports: Occupation: Employed (Works at [employer] and at [employer] ED ROS GENERAL - Review of Systems Review Of Systems: See Below Constitutional: Reports: No Symptoms HEENT: Reports: No Symptoms Respiratory: Reports: No Symptoms Cardiovascular: Reports: No Symptoms Endocrine: Reports: No Symptoms GI/Abdominal: Reports: No Symptoms : Reports: No Symptoms Musculoskeletal: Reports: No Symptoms Skin: Reports: Erythema Neurological: Reports: No Symptoms Psychiatric: Reports: No Symptoms ED EXAM, GENERAL - Physical Exam Exam: See Below Exam Limited By: No Limitations General Appearance: Alert, No Apparent Distress Eye Exam: Bilateral Eye: PERRL Ears: Normal External Exam, Normal Canal Nose: Normal Inspection, Normal Mucosa, No Blood Throat/Mouth: Normal Inspection, Normal Lips, Normal Teeth Head: Atraumatic, Normocephalic Neck: Normal Inspection, Supple, Non-Tender, Full Range of Motion Respiratory/Chest: No Respiratory Distress, Lungs Clear, Normal Breath Sounds, No Accessory Muscle Use, Chest Non-Tender Cardiovascular: Normal Peripheral Pulses, Regular Rate, Rhythm, No Edema, No Gallop GI/Abdominal: Normal Bowel Sounds, Soft, Non-Tender, No Organomegaly Back Exam: Normal Inspection, Full Range of Motion Extremities: Normal Inspection, Normal Range of Motion, Other (tenderness,redneess heel of left foot) Course - Vital Signs Text/Narrative:: Keflex 500 mg PO x1 Refused Toradol 60 IM Last Recorded V/S: Last Vital Signs Temp 36.9 C 03/24/21 17:31 Pulse 82 03/24/21 18:32 Resp 20 03/24/21 18:32 BP 150/88 H 03/24/21 18:32 Pulse Ox 100 03/24/21 18:32 - Orders/Labs/Meds Meds: Medications Discontinued Medications Generic Name Dose Route Start Last Admin Trade Name Freq PRN Reason Stop Dose Admin Cephalexin 500 mg 03/24/21 18:13 03/24/21 18:34 Cephalexin 500 Mg Cap PO 03/24/21 18:14 500 mg NOW STA Administration Ketorolac Tromethamine 60 mg 03/24/21 18:12 Ketorolac 30 Mg/Ml Sdv IM 03/24/21 18:13 NOW STA Departure - Departure Time of Disposition: 18:30 Disposition: Home, Self-Care 01 Condition: Good Clinical Impression: Cellulitis - Discharge Information Prescriptions: cephALEXin [Keflex] 500 mg PO Q8H #30 cap Naproxen 500 mg PO BID #15 tablet Naproxen 500 mg PO TID #30 tablet Instructions: Cellulitis, Adult, [id number] Referrals: Triston Noble MD [Primary Care Provider] - Forms: ED Department Discharge Additional Instructions: Please read discharge instructions on cellulitis Naproxen 500 mg twice daily for 1 week Keflex 500 mg 3 times daily for 10 days Follow up in 5 days
[2021-03-24] MEDS: Cephalexin 500 MG Cap PO STA (18:34)
[2021-03-24 19:09] VITALS: BP 150/88; PULSE 82
== END 2021-03-24 18:34 | disposition home or self-care (01) ==
LOC: FB.ED 17:31
DX: L03.116 Cellulitis of left lower limb (principal); E11.9 Type 2 diabetes mellitus without complications; E66.9 Obesity, unspecified; Z68.41 Body mass index [BMI] 40.0-44.9, adult; Z88.8 Allergy status to other drugs, medicaments and biological substances; Z79.82 Long term (current) use of aspirin; Z79.899 Other long term (current) drug therapy; Z79.84 Long term (current) use of oral hypoglycemic drugs
CPT/HCPCS: 99283; A9270-GY

== ENCOUNTER 2022-05-27 01:00 | Emergency (ER) | payer BC, OTHER ==
[2022-05-27 02:01] VITALS: BP 186/98; PULSE 91
[2022-05-27] MEDS ORDERED: Glucagon,Human Recombinant 1 MG Vial IM PRN (02:13)
[2022-05-27] MEDS ORDERED: 50% Dextrose in Water 50 ML Syringe IVPUSH PRN (02:13)
[2022-05-27] MEDS ORDERED: Insulin Regular, Human 100 Units/ML 3 ML Vial SUBCUT ONE (02:13)
[2022-05-27] MEDS ORDERED: metroNIDAZOLE 500 MG Tab PO ONE (02:27)
[2022-05-27] MEDS ORDERED: diphenhydrAMINE 50 MG Cap PO ONE (02:41)
== END 2022-05-27 02:50 | disposition home or self-care (01) ==
LOC: FB.ED 01:00
DX: N76.0 Acute vaginitis (principal); E11.65 Type 2 diabetes mellitus with hyperglycemia; E78.00 Pure hypercholesterolemia, unspecified; E66.9 Obesity, unspecified; Z68.41 Body mass index [BMI] 40.0-44.9, adult; Z88.8 Allergy status to other drugs, medicaments and biological substances; Z79.899 Other long term (current) drug therapy; Z79.84 Long term (current) use of oral hypoglycemic drugs; Z79.82 Long term (current) use of aspirin
CPT/HCPCS: 82947; 99283; A9270-GY; J1815-GY

== ENCOUNTER 2022-11-17 18:17 | Emergency (ER) | payer OTHER ==
[2022-11-17 20:23] VITALS: BP 136/66; PULSE 95
== END 2022-11-17 19:32 | disposition home or self-care (01) ==
LOC: FB.ED 18:17
DX: S63.502A Unspecified sprain of left wrist, initial encounter (principal); E11.9 Type 2 diabetes mellitus without complications; E78.00 Pure hypercholesterolemia, unspecified; E66.9 Obesity, unspecified; Z68.41 Body mass index [BMI] 40.0-44.9, adult; Z79.82 Long term (current) use of aspirin; Z79.899 Other long term (current) drug therapy; Z79.84 Long term (current) use of oral hypoglycemic drugs; W00.0XXA Fall on same level due to ice and snow, initial encounter
CPT/HCPCS: 73110-LT; 99283

== ENCOUNTER 2023-05-06 21:51 | Emergency (ER) | payer OTHER ==
[2023-05-06 22:24] VITALS: BP 140/83; PULSE 100
== END 2023-05-06 22:52 | disposition home or self-care (01) ==
LOC: FB.ED 21:51
DX: S96.812A Strain of other specified muscles and tendons at ankle and foot level, left foot, initial encounter (principal); E78.00 Pure hypercholesterolemia, unspecified; E11.9 Type 2 diabetes mellitus without complications; E66.9 Obesity, unspecified; Z88.8 Allergy status to other drugs, medicaments and biological substances; Z79.82 Long term (current) use of aspirin; Z79.84 Long term (current) use of oral hypoglycemic drugs; Z79.899 Other long term (current) drug therapy; Z68.41 Body mass index [BMI] 40.0-44.9, adult; X50.9XXA Other and unspecified overexertion or strenuous movements or postures, initial encounter
CPT/HCPCS: 99283

== ENCOUNTER 2023-07-20 21:08 | Emergency (ER) | payer OTHER ==
[2023-07-20] MEDS ORDERED: methylPREDNISolone Sodium Succinate 125 MG/2 ML SDV IM ONE (21:30)
[2023-07-20] MEDS ORDERED: diphenhydrAMINE 50 MG/ML SDV IM ONE (21:30)
[2023-07-20 21:34] VITALS: BP 152/75; PULSE 95
== END 2023-07-20 22:13 | disposition home or self-care (01) ==
LOC: FB.ED 21:08
DX: S40.861A Insect bite (nonvenomous) of right upper arm, initial encounter (principal); S40.862A Insect bite (nonvenomous) of left upper arm, initial encounter; F17.210 Nicotine dependence, cigarettes, uncomplicated; E78.00 Pure hypercholesterolemia, unspecified; Z88.8 Allergy status to other drugs, medicaments and biological substances; Z79.82 Long term (current) use of aspirin; Z79.84 Long term (current) use of oral hypoglycemic drugs
CPT/HCPCS: 96372; 99281; J1200; J2930

== ENCOUNTER 2024-01-06 19:51 | Emergency (ER) | payer OTHER ==
[2024-01-06 20:22] VITALS: BP 149/72; PULSE 87
== END 2024-01-06 20:29 | disposition home or self-care (01) ==
LOC: FB.ED 19:51
DX: M76.32 Iliotibial band syndrome, left leg (principal); I10 Essential (primary) hypertension; E78.00 Pure hypercholesterolemia, unspecified; E11.9 Type 2 diabetes mellitus without complications; Z88.8 Allergy status to other drugs, medicaments and biological substances; Z79.82 Long term (current) use of aspirin; Z79.84 Long term (current) use of oral hypoglycemic drugs; Z79.899 Other long term (current) drug therapy
CPT/HCPCS: 99283